=== PATIENT | male | born 2000 | race Caucasian/White ===

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

== ENCOUNTER 2022-08-09 19:37 | Emergency (ER) | payer OTHER ==
[~2022-08-09] VITALS: Ht 170.2 cm; Wt 67.1 kg
[2022-08-09 20:43] VITALS: BP 144/89
--- NOTE | 2022-08-09 20:50 | NUR ---
PT TO BED 09. MAICO CALDERON AND YAO CARDENAS MADE AWARE.
[2022-08-09] MEDS ORDERED: ACETAMINOPHEN EXTRA STRENGTH 500 MG TAB PO ONE (21:20)
[2022-08-09] MEDS ORDERED: IBUPROFEN 600 MG TAB PO ONE (21:20)
[2022-08-09 22:43] VITALS: BP 144/89
== END 2022-08-09 22:44 | disposition home or self-care (01) ==
LOC: MED 19:37
DX: R10.31 Right lower quadrant pain (principal)
CPT/HCPCS: 81002; 99283